=== PATIENT | female | born 1985 | race Caucasian/White ===

== ENCOUNTER 2017-04-13 12:54 | Emergency (ER) | payer BC ==
--- NOTE | 2017-04-13 12:58 | Emergency Department Record ---
History of Present Illness - General Stated Complaint: DIARRHEA,VOMITING, Time Seen by Provider: 04/13/17 12:56 Source: Patient, Family Mode of Arrival: Ambulatory Limitations: No limitations - History of Present Illness Initial Comments: 31 yo female presents with nausea, vomiting, and diarrhea that started this morning. No fevers. She has some upper abdominal cramps. She works at [employer] where patients have similar symptoms. No GI history. No antibiotics. No blood in either vomit or diarrhea. MD Complaint: Abdominal pain, Other (Vomiting and Diarrhea) Location: Epigastric Radiation: Epigastric Migration to: Epigastric Quality: Cramping Consistency: Constant Improves With: Nothing Worsens With: Eating Context: Sick contacts Associated Symptoms: Anorexia, Diarrhea, Nausea, Vomiting - Related Data Previous Rx's Medication Instructions Recorded Ondansetron [Zofran Odt] 4 mg PO Q8H #20 tab.rapdis 04/13/17 Allergies Allergy/AdvReac Type Severity Reaction Status Date / Time No Known Drug Allergies Allergy Unverified 06/06/16 13:38 Review of Systems Constitutional: Denies: Chills, Fever, Malaise, Weakness Eyes: Denies: Eye discharge, Eye pain, Photophobia, Vision change ENT: Denies: Congestion, Throat pain Respiratory: Denies: Cough, Dyspnea Cardiovascular: Denies: Chest pain, Syncope Endocrine: Denies: Fatigue Gastrointestinal: Reports: Abdominal pain, Diarrhea, Nausea, Vomiting. Denies: Constipation, Hematemesis, Hematochezia, Melena Genitourinary: Denies: Dysuria, Urgency Musculoskeletal: Denies: Arthralgia, Back pain, Joint swelling, Myalgia Skin: Denies: Bruising, Change in color, Rash Neurological: Denies: Headache, Numbness, Vertigo, Weakness Psychiatric: Denies: Anxiety Hematological/Lymphatic: Denies: Blood Clots, Easy bleeding, Easy bruising, Swollen glands Past Medical History - SOCIAL HISTORY Smoking Status: Current every day smoker - RESPIRATORY Hx Respiratory Disorders: No - CARDIOVASCULAR Hx Cardio Disorders: Yes Hx Hypotension: Yes - NEURO Hx Neuro Disorders: No - GI Hx GI Disorders: Yes Hx Reflux: Yes - Hx Genitourinary Disorders: No - ENDOCRINE Hx Endocrine Disorders: No Hx Diabetes: No Hx Thyroid Disease: No - MUSCULOSKELETAL Hx Musculoskeletal Disorders: No - PSYCH Hx Psych Problems: No - HEMATOLOGY/ONCOLOGY Hx Hematology/Oncology Disorders: No Family Medical History Hx Heart Disease: Grandparents Physical Exam - General General Appearance: Alert, Oriented x3, Cooperative, No acute distress - Head Head exam: Normal inspection - Eye Eye exam: Normal appearance, PERRL. negative: Conjunctival injection, Scleral icterus - ENT ENT exam: Normal exam, Mucous membranes moist Ear exam: Normal external inspection Nasal Exam: Normal inspection Mouth exam: Normal external inspection Teeth exam: Normal inspection Throat exam: Normal inspection - Neck Neck exam: Normal inspection, Full ROM. negative: Tenderness - Respiratory Respiratory exam: Normal lung sounds bilaterally. negative: Respiratory distress, Rhonchi, Stridor, Wheezes - Cardiovascular Cardiovascular Exam: Regular rate, Normal rhythm, Normal heart sounds - GI/Abdominal GI/Abdominal exam: Soft, Normal bowel sounds, Tenderness (mild epigastric). negative: Distended, Guarding, Rebound, Rigid - Rectal Rectal exam: Deferred - exam: Deferred - Extremities Extremities exam: Normal inspection, Full ROM, Normal capillary refill. negative: Tenderness - Back Back exam: Reports: Normal inspection, Full ROM. Denies: Muscle spasm, Rash noted, Tenderness - Neurological Neurological exam: Alert, Normal gait, Oriented X3 - Psychiatric Psychiatric exam: Normal affect, Normal mood - Skin Skin exam: Dry, Intact, Normal color, Warm Course - Reevaluation(s) Reevaluation #1: 04/13/17 14:41 No acute changes on the CMP or Lipase The HCG is negative CBC with WBC of 15 Stool negative for pathogens with C.Diff pending Occult blood negative 04/13/17 14:54 The patient is doing better at this time. The nausea is controlled and she is trying PO The cramps are minimal 04/13/17 15:50 The patient reports she is doing well. No vomiting. Cramps well controlled. DC home with instructions for supportive care Medical Decision Making - Lab Data Result diagrams: 04/13/17 13:22 04/13/17 13:22 Disposition Disposition: Discharge Clinical Impression: Vomiting and diarrhea Disposition: Home, Self-Care Condition: (1) Good Instructions: Acute Nausea and Vomiting (ED), Acute Diarrhea (ED) Additional Instructions: [place] diet the next 1-2 days Return if you have any fever, uncontrolled vomiting or any new concerns Prescriptions: Ondansetron [Zofran Odt] 4 mg PO Q8H #20 tab.rapdis Time of Disposition: 15:51 Quality - Quality Measures Quality Measures: N/A - Blood Pressure Screening Does Patient Have Any of the Following: No Blood Pressure Classification: Normal BP Reading Systolic Measurement: 101 Diastolic Measurement: 63 Screening for High Blood Pressure: < Normal BP, F/U Not Required > [G8783]
[2017-04-13] MEDS ORDERED: ONDANSETRON HCL IV 4 MG/2 ML VIAL IVP ONE (13:03)
[2017-04-13] MEDS ORDERED: 0.9 % SODIUM CHLORIDE 1,000 ML BAG IV ONE (13:03)
[2017-04-13 13:39] LABS: HEMATOCRIT 44.9 % (35.0-47.0); HEMOGLOBIN 15.2 gm/dl (11.6-16.0); MEAN CELL VOLUME 87.7 fl (81-97); MEAN CORPUSCULAR HEMOGLOBIN 29.7 pg (27-33); MEAN CORPUSCULAR HGB CONC 33.9 g/dl (32-36); MEAN PLATELET VOLUME 10.5 fl (7.4-10.4); PLATELET COUNT 273 K/uL (130-400); RED BLOOD COUNT 5.12 M/uL (3.80-5.40); RED CELL DISTRIBUTION WIDTH 13.1 % (11.5-14.5); WHITE BLOOD COUNT W/O DIFF 15.1 K/uL (4.2-12.2)
[2017-04-13 13:52] LABS: BLOOD UREA NITROGEN 14 mg/dL (6-20); CREATININE 0.7 mg/dL (0.5-0.9); EST GLOMERULAR FILTRATION RATE > 60 mL/min; TOTAL PROTEIN 8.1 g/dL (6.6-8.7)
[2017-04-13 13:54] LABS: GLUCOSE,RANDOM 97 mg/dL (74-109)
[2017-04-13 13:55] LABS: PLATELET ESTIMATE NORMAL (NORMAL)
[2017-04-13 13:57] LABS: ALB/GLOB RATIO 1.6 (1.1-1.8); ALKALINE PHOSPHATASE 52 U/L (35-104); ALT/SGPT 11 U/L (<33); AST/SGOT 13 U/L (10.0-35.0); LIPASE 35 U/L (13-60)
[2017-04-13 14:04] LABS: STOOL FOR POLYS NO WBC'S OBSERVED (NO WBC'S)
[2017-04-13 14:33] LABS: CRYPTOSPORIDIUM PARVUM ANTIGEN NOT DETECTED (NOT DETECT); GIARDIA LAMBLIA ANTIGEN NOT DETECTED (NOT DETECT); ROTOVIRUS NOT DETECTED (NOT DETECT)
[2017-04-13] MEDS ORDERED: 0.9 % SODIUM CHLORIDE 1000ML 1,000 ML IV ONE (14:51)
[2017-04-13 15:13] LABS: MOLECULAR C DIFF TOXIN SCREEN NOT DETECTED (NOT DETECT)
== END 2017-04-13 16:02 | disposition home or self-care (01) ==
LOC: ER 12:54
DX: R19.7 Diarrhea, unspecified (principal); R10.13 Epigastric pain; R11.2 Nausea with vomiting, unspecified; F17.210 Nicotine dependence, cigarettes, uncomplicated
CPT/HCPCS: 99284 ×2; 96374; 83690; 87329; 89055; 80053; 87425; 84703; 82272; 87493; 85027; J2405; J7030

== ENCOUNTER 2018-07-16 05:57 | Day surgery (SDC) | payer OTHER ==
[2018-07-16] MEDS ORDERED: MIDAZOLAM HCL 2MG/2ML VIAL IV ONE (05:58)
[2018-07-16] MEDS ORDERED: LIDOCAINE 2% MDV (20MG/ML) 20ML VIAL IV ONE (05:58)
[2018-07-16] MEDS ORDERED: PROPOFOL 10 MG/ML VIAL IV ONE (05:58)
[2018-07-16] MEDS ORDERED: DEXAMETHASONE 4 MG/ML 1ML VIAL IVP ONE (05:58)
[2018-07-16] MEDS ORDERED: KETOROLAC 30 MG/ML VIAL IVP ONE (05:58)
[2018-07-16] MEDS ORDERED: ONDANSETRON HCL IV 4 MG/2 ML VIAL IVP ONE (05:58)
[2018-07-16] MEDS ORDERED: SEVOFLURANE 250 ML INH ONE (05:58)
[2018-07-16] MEDS ORDERED: FENTANYL PF 100MCG/2ML VIAL IV ONE (05:58)
[2018-07-16] MEDS ORDERED: GLYCOPYRROLATE 0.2 MG/ML ML IV ONE (05:58)
[2018-07-16] MEDS ORDERED: ACETAMINOPHEN 1,000 MG/100 ML BTL IVPB ONE (06:00)
[2018-07-16] MEDS ORDERED: RINGERS SOLUTION,LACTATED 1,000 ML IV ONE ×2 (06:50→08:24)
[2018-07-16] MEDS ORDERED: BUPIVACAINE 0.25% W/EPI MPF 30ML VIAL SQ ONE (08:29)
[2018-07-16] MEDS ORDERED: HYDROCODONE/APAP 5/325MG TABLET PO ONE (09:03)
--- NOTE | 2018-07-17 07:20 | Operative Note ---
DATE OF SURGERY: 07/16/2018 SURGEON: Justino Felipe DO PREOPERATIVE DIAGNOSIS: Acromioclavicular arthrosis of the right shoulder. POSTOPERATIVE DIAGNOSIS: Acromioclavicular arthrosis of the right shoulder. OPERATION: Faustino procedure, right shoulder (resection right distal clavicle). DESCRIPTION OF PROCEDURE: This 33-year-old female was taken to the operating room and placed in the supine position on the operating room table. General anesthetic was administered. The patient was placed in the beach chair position with all bony prominences well padded and the head well secured. The right shoulder was prepped with Hibiclens and draped in the usual sterile fashion. A longitudinal incision was made along Quynh's lines overlying the acromioclavicular joint, and dissection was carried down through the skin and subcutaneous tissue. The subcutaneous tissue was divided with the electrocautery. The joint capsule was easily identified and a "T" type incision was made in the joint capsule. Subperiosteal elevation was carried out over the distal clavicle to expose the distal centimeter. We used an oscillating saw to remove approximately 0.75 cm of the distal clavicle and the acromioclavicular disc. The wound was irrigated with lactated Ringer's solution. Hemostasis obtained with the electrocautery. The periosteum and joint capsule were reapproximated with 0 Vicryl. The subcutaneous tissue closed with 4-0 Vicryl, and the skin was closed with a running subcuticular 4-0 nylon suture. Sterile dressings were applied after the wound was infiltrated with 0.25% Marcaine with epinephrine. A sling was applied and the patient taken to the recovery room in satisfactory condition. GROSS PATHOLOGY: This patient demonstrated disruption of the acromioclavicular disc of the right shoulder. CC: Matilda VILLALBA
== END 2018-07-16 09:30 | disposition home or self-care (01) ==
LOC: SUR 05:57
PROVIDERS: ATTEND Orthopaedic Surgery
DX: M19.011 Primary osteoarthritis, right shoulder (principal); F17.210 Nicotine dependence, cigarettes, uncomplicated
CPT/HCPCS: 23120; 00450; 81025; J1885; J2405; J3010; J7120